=== PATIENT | male | born 1990 | race Two or more races ===

== ENCOUNTER 2018-02-28 03:46 | Emergency (ER) | payer SELFPAY ==
[~2018-02-28] VITALS: Ht 172.7 cm; Wt 153.7 kg
[2018-02-28] MEDS ORDERED: MORPHINE SULFATE 4 MG/ML, 1ML IVPush PRN (04:00)
[2018-02-28] MEDS ORDERED: KETOROLAC 30 MG/1 ML IVPush ONE (04:00)
[2018-02-28] MEDS ORDERED: SODIUM CHLORIDE FLUSH 10ML SYR IVF ONE (04:00)
[2018-02-28] MEDS ORDERED: MORPHINE SULFATE 4 MG/ML, 1ML ONE (04:04)
[2018-02-28] MEDS ORDERED: KETOROLAC 30 MG/1 ML ONE (04:04)
[2018-02-28 04:44] LABS: BASOPHILS # (AUTO) 0.03 x10^3/uL (0-0.1); BASOPHILS % (AUTO) 0 % (0-1); EOSINOPHILS # (AUTO) 0.18 x10^3/uL (0-0.4); EOSINOPHILS % (AUTO) 2 % (1-7); LYMPHOCYTES # (AUTO) 3.45 x10^3/uL (1-3.4); LYMPHOCYTES % (AUTO) 32 % (22-44); MD NO; MEAN CORPUSCULAR HEMOGLOBIN 30.6 pg (27.5-34.5); MEAN CORPUSCULAR HGB CONC 34.1 g/dL (33.2-36.2); MEAN CORPUSCULAR VOLUME 89.8 fL (81-97); MEAN PLATELET VOLUME 9.5 fL (7.4-10.4); MONOCYTES # (AUTO) 0.81 x10^3/uL (0.2-0.8); MONOCYTES % (AUTO) 8 % (2-9); NEUTROPHILS # (AUTO) 6.35 x10^3/uL (1.8-6.8); NEUTROPHILS % (AUTO) 59 % (42-75); PLATELET COUNT 247 x10^3/uL (130-400); RED BLOOD COUNT 5.09 x10^6/uL (4.38-5.82); RED CELL DISTRIBUTION WIDTH 13.8 % (9.4-14.8)
[2018-02-28 04:50] LABS: ALANINE AMINOTRANSFERASE 91 U/L (12-78); ALBUMIN 3.8 g/dL (3.4-5.0); ANION GAP 8 mmol/L (5-15); CALCIUM 8.6 mg/dL (8.5-10.1); CHLORIDE 108 mmol/L (98-107); CREATININE 0.88 mg/dL (0.7-1.3)
[2018-02-28 04:51] LABS: MICROSCOPIC NOT IND
[2018-02-28 04:52] LABS: CULTURE INDICATED? NO
[2018-02-28 04:53] LABS: ALKALINE PHOSPHATASE 93 U/L (45-117); BILIRUBIN,TOTAL 0.4 mg/dL (0.2-1.0); TOTAL PROTEIN 7.4 g/dL (6.4-8.2)
[2018-02-28 04:59] VITALS: BP 142/67
== END 2018-02-28 05:23 | disposition home or self-care (01) ==
LOC: ED 05:17
DX: I88.0 Nonspecific mesenteric lymphadenitis (principal); R10.9 Unspecified abdominal pain
CPT/HCPCS: 36415; 74176; 80053; 81003; 83690; 85025; 96374; 96375; 99285; J1885